=== PATIENT | female | born 1960 | race Caucasian/White ===

== ENCOUNTER 2023-08-17 08:38 | Day surgery (SDC) | payer OTHER, MEDICARE ==
[~2023-08-17 08:38] MED LIST: Lactated Ringers 1,000 ML IV SCH; Sodium Chloride 0.9% 10 ML Syringe FLUSH PRN; Sodium Chloride 0.9% 10 ML Syringe FLUSH SCH
[2023-08-17] MEDS ORDERED: Ondansetron 4 MG/2 ML SDV IVPUSH PRN (09:51)
[2023-08-17] MEDS ORDERED: Midazolam 1 MG/ML 2 ML SDV ONE (10:32)
[2023-08-17] MEDS ORDERED: Propofol 200 MG/20 ML SDV ONE ×2 (10:32→10:33)
[2023-08-17] MEDS ORDERED: fentaNYL 100 MCG/2 ML SDV ONE (10:33)
[2023-08-17] MEDS ORDERED: Lidocaine 1% 4 ML ONE (11:35)
== END 2023-08-17 12:25 | disposition home or self-care (01) ==
LOC: JD.SDS 08:38
PROVIDERS: ATTEND Surgery
DX: D12.2 Benign neoplasm of ascending colon (principal); D12.3 Benign neoplasm of transverse colon; D12.4 Benign neoplasm of descending colon; K62.1 Rectal polyp; K21.00 Gastro-esophageal reflux disease with esophagitis, without bleeding; K31.89 Other diseases of stomach and duodenum; K29.80 Duodenitis without bleeding; K29.70 Gastritis, unspecified, without bleeding; K57.30 Diverticulosis of large intestine without perforation or abscess without bleeding; K64.8 Other hemorrhoids; K64.4 Residual hemorrhoidal skin tags; K59.00 Constipation, unspecified; J44.9 Chronic obstructive pulmonary disease, unspecified; F17.210 Nicotine dependence, cigarettes, uncomplicated; Z79.899 Other long term (current) drug therapy
CPT/HCPCS: 43239; 45380; 88305; 88312; J2250; J2704; J3010; J7120; 00813; J3490